=== PATIENT | male | born 1995 | race Caucasian/White ===

== ENCOUNTER 2017-03-13 18:12 | Emergency (ER) | payer BC ==
[2017-03-13] MEDS ORDERED: DIPH,PERTUSS(ACELL),TET VAC/PF 0.5 ML VIAL IM ONE (18:40)
--- NOTE | 2017-03-13 19:47 | ER PHYSICIAN DOCUMENTATION ---
Physician Documentation [facility] Name:Sg Castañeda Age:21 yrs Sex:Male :1995 Arrival Date:03/13/2017 Time:18:12 Bed1 Private MD: Darwin Pires Disposition: 03/13/17 19:26 Discharged to Home/Self Care. Impression: Leg Laceration, Except Thigh, w/o Complication - 4.5 cm, Simple Closure (by MD). - Condition is Good. - Discharge Instructions: Abrasion - LACERATION, Extrem (suture, staple or tape). - Medical Reconciliation form form. - Follow up: Emergency Department; When: 03/21/2017; Reason: Recheck today's complaints, Continuance of care. - Problem is new. - Symptoms have improved. - Notes: Sutures out in 8 days. SPF -50 Sunscreen for 12 months. Remember Year 2016.... you last Tetanus Booster! HPI: 03/13 18:15 This 21 yrs old Male presents to ER via Private Vehicle with complaints of cd Laceration To Leg - RIGHT. 18:15 The patient has a laceration related to: playing sports, mountain biking and the cd sprocket cut his right calf resulting in 5 lacerations today, occurred outdoors, and there are no complicating factors. The injury was accidental. The laceration(s) is(are) located on the medial aspect of right calf. Onset: The symptom(s)/episode began/occurred acutely, today. Associated signs and symptoms: The patient has no apparent associated signs or symptoms. Historical: - Allergies: No known drug Allergies; - Home Meds: 1. Zyrtec Oral - PMHx: None; - PSHx: None; - Tetanus: unknown. - Ebola Screening: : Patient denies exposure to infectious person. Patient denies travel to an Ebola-affected area in the 21 days before illness onset. . - Immunization history: Flu Vaccine < 1 year. - Social history: Smoking status: Patient states was never smoker of tobacco. Patient uses alcohol occasionally. marijuana. ROS: 18:22 Skin: Positive for laceration(s), of the medial aspect of right calf, Negative for cd erythema. 18:22 All other systems are negative. Exam: 18:22 Musculoskeletal/extremity: Extremities: grossly normal except: noted in the medial cd aspect of right calf: laceration, ROM: no acute changes, Circulation is intact in all extremities. Sensation intact. 18:22 Skin: Appearance: normal except for affected area, injury, laceration(s), the wound is approximately 5.5 cm(s), with a depth of 0.5 cm(s), of the medial aspect of right calf, that can be described as contaminated, no foreign body, linear, without bleeding. Vital Signs: 18:23 BP 145 / 89; Pulse 74; Resp 16; Temp 98.0; Pain 2/10; st [place] Coma Score: 18:22 Eye Response: spontaneous(4). Verbal Response: oriented(5). Motor Response: obeys cd commands(6). Total: 15. Laceration: 18:22 Wound Repair of 5.5cm ( 2.2in ) subcutaneous laceration to medial aspect of right calf. cd Linear shaped.. Minimal contamination.. Hemostasis noted.. Distal neuro/vascular/tendon intact. Anesthesia: Local anesthetic administered with 5 mls of 2% lidocaine w/ Epi. Wound prep: Extensive cleansing with hibiclenz, Particulate matter removal of dirt. Skin closed with 20 5-0 Ethilon using Running sutures. Dressed with Bacitracin, 4x4's, Andreas. Patient tolerated well. MDM: 18:28 Patient medically screened. cd 19:20 Data reviewed: vital signs, nurses notes, old medical records, and as a result, I will cd discharge patient. Data interpreted: Pulse oximetry: on room air is 92 %. Interpretation: normal. Counseling: I had a detailed discussion with the patient and/or guardian regarding: the historical points, exam findings, and any diagnostic results supporting the discharge/admit diagnosis, the need for outpatient follow up, for a recheck, with the patient's primary care provider, to return to the emergency department if symptoms worsen or persist or if there are any questions or concerns that arise at home. Response to treatment: the patient's symptoms have resolved after treatment, and as a result, I will discharge patient. Dispensed Medications: 18:27 Drug: Adacel 0.5 ml; {Principal Investigator: [employer] ([employer]). Exp: 11/08/2018. Lot #: [id number]. } Route: IM; Site: left deltoid; 19:18 Follow up: Response: No adverse reaction mk2 Signatures: Kirstin Lagunas, Darwin Maldonado RN, MD MD cd Kruger, Meg, PROSPER RN mk2
--- NOTE | 2017-03-13 19:47 | ER NURSING DOCUMENTATION ---
Nurse's Notes [facility] Name:Sg Castañeda Age:21 yrs Sex:Male :1995 Arrival Date:03/13/2017 Time:18:12 Bed1 Private MD: Diagnosis:Leg Laceration, Except Thigh, w/o Complication-4.5 cm, Simple Closure (by MD) Presentation: 03/13 18:15 Acuity: MELINDA 3 st 18:19 Presenting complaint: Patient states: pt got his right calf caught in a bike sprocket st today while mountain biking. Transition of care: patient was not received from another setting of care. Complicating Factors: There are no complicating factors for this patient. 18:19 Method Of Arrival: Private Vehicle st Triage Assessment: 18:21 General: Appears in no apparent distress, Behavior is cooperative. Pain: Complains of st pain in medial aspect of right calf Pain currently is 2 out of 10 on a pain scale. Injury Description: Laceration sustained to medial aspect of right calf is multiple small deep lacs in approximately a 3in by 3in area. was sustained 1-2 hours ago. Historical: - Allergies: No known drug Allergies; - Home Meds: 1. Zyrtec Oral - PMHx: None; - PSHx: None; - Tetanus: unknown. - Ebola Screening: : Patient denies exposure to infectious person. Patient denies travel to an Ebola-affected area in the 21 days before illness onset. . - Immunization history: Flu Vaccine < 1 year. - Social history: Smoking status: Patient states was never smoker of tobacco. Patient uses alcohol occasionally. marijuana. Screenin:23 Infectious Disease Risk None. Abuse screen: Denies threats or abuse. Denies injuries st from another. pt feels safe at home. Nutritional screening: No deficits noted. Assessment: 19:17 See Triage Assessment done by same RN. mk2 19:46 Musculoskeletal: Circulation, motion, and sensation intact. mk2 Vital Signs: 18:23 BP 145 / 89; Pulse 74; Resp 16; Temp 98.0; Pain 2/10; st [place] Coma Score: 18:22 Eye Response: spontaneous(4). Verbal Response: oriented(5). Motor Response: obeys cd commands(6). Total: 15. ED Course: 18:14 Patient arrived in ED. thuy 18:15 Susanna Valencia, PROSPER is Primary Nurse. 18:15 Triage completed. 18:23 Valuables Remains with patient Patient has correct armband on for positive st identification. Bed in low position. 18:27 Wound care was cleaned with with Dr. Villatoro at bedside cleaning wound.. st 18:28 Darwin Villatoro MD is Attending Physician. cd 19:16 Primary Nurse role handed off by Susanna Valencia RN [facility] 19:16 Myrna Del Castillo, PROSPER is Primary Nurse. 2 19:16 Report received from Kirstin Baker. 2 19:18 Resting quietly. Shauna is suturing. mk2 19:43 wound washed with soap and water. Bacitracin applied and wrapped with gauze and daniel mk2 wrap. Pt is going backpacking and will be available to have sutures out in 10 days vs the [address] summary[address] Broussard tells pt that would be fine to remove stitches in 10 after his trip. Administered Medications: 18:27 Drug: Adacel 0.5 ml; {Integrated Logistics Support Manager: [employer] ([employer]). Exp: 11/08/2018. Lot #: [id number]. } Route: IM; Site: left deltoid; 19:18 Follow up: Response: No adverse reaction [facility] Outcome: 19:26 Discharge ordered by . 19:45 Discharged to home ambulatory. 2 19:45 Condition: improved 19:45 Discharge instructions given to patient, Instructed on discharge instructions, follow up and referral plans. medication usage. 19:46 Patient left the ED. 2 03/14 10:15 Discharge F/U Call: Unable to reach: no answer Signatures: Kirstin Lagunas RN RN st Coleman, Linda, RN RN lc Pavlish, Lena, RN RN lp Daley, Chris, MD MD cd Kruger, Meg, RN RN mk2 Lietz, Jeff
== END 2017-03-13 19:47 | disposition home or self-care (01) ==
LOC: ER 18:12
DX: S81.811A Laceration without foreign body, right lower leg, initial encounter (principal); W23.0XXA Caught, crushed, jammed, or pinched between moving objects, initial encounter; Y92.838 Other recreation area as the place of occurrence of the external cause; Y93.55 Activity, bike riding; Z23 Encounter for immunization
CPT/HCPCS: 12032; 90471; 99283